=== PATIENT | female | born 1945 | race Caucasian/White ===

== ENCOUNTER 2016-12-26 18:34 | Emergency (ER) | payer BC, MEDICARE ==
[~2016-12-26] VITALS: Ht 157.5 cm; Wt 67.5 kg
[~2016-12-26 18:34] MED LIST: BENEPOW; BETH25TA2 PO; BIOT50005 PO; COQ1100C PO; FENO145T2 PO; HYDR-3133 PO; HYDR-3516 PO; LEVO50TA4 PO; NAPR220T95 PO; OMEP20TA PO; PREM0.45 PO; VITA100018 PO
[2016-12-26 18:38] VITALS: BP 184/88; PULSE 70; RESP 18; TEMP 98.1; O2SAT 100
[2017-02-01] MEDS ORDERED: MULTTAB67 PO (08:33)
[2017-02-01] MEDS ORDERED: FENO160T PO (08:39)
[2017-02-15] MEDS ORDERED: ALEV220T14 PO (09:11)
[2017-02-15] MEDS ORDERED: COEN100C PO (09:11)
[2017-02-15] MEDS ORDERED: BIOT50006 PO (09:11)
== END 2016-12-26 19:40 | disposition left against medical advice (07) ==
LOC: NED 18:34
DX: Z00.01 Encounter for general adult medical examination with abnormal findings (principal)
CPT/HCPCS: 99281